=== PATIENT | male | born 1990 | race Caucasian/White ===

== ENCOUNTER 2024-07-25 09:57 | Emergency (ER) | payer OTHER ==
[2024-07-25 10:23] LABS: BASOPHILS % (AUTO) 0.5 %; EOSINOPHILS # (AUTO) 0.1 10^3/uL (0.0-0.7); EOSINOPHILS % (AUTO) 1.6 %; HGB - HEMOGLOBIN 16.5 g/dL (14.0-18.0); LYMPHOCYTES # (AUTO) 2.6 10^3/uL (1.5-3.5); MEAN CORPUSCULAR HEMOGLOBIN 31.5 pg (27.0-31.0); MEAN CORPUSCULAR HGB CONC 34.4 g/dL (32.0-36.0); MEAN CORPUSCULAR VOLUME 91.8 fL (80.0-94.0); MEAN PLATELET VOLUME 10.4 fL (7.4-11.4); MONOCYTES # (AUTO) 0.5 10^3/uL (0.0-1.0); MONOCYTES % (AUTO) 6.1 %; NEUTROPHILS # (AUTO) 5.4 10^3/uL (1.5-6.6); NEUTROPHILS % (AUTO) 61.3 %; PLT - PLATELET COUNT 195 10^3/uL (130-450); RED BLOOD COUNT 5.23 10^6/uL (4.70-6.10); RED CELL DISTRIBUTION WIDTH 12.7 % (12.0-15.0); WHITE BLOOD COUNT 8.7 x10^3/uL (4.8-10.8)
[2024-07-25 10:39] LABS: ALBUMIN 4.7 g/dL (3.2-5.5); ALBUMIN/GLOBULIN RATIO 2.1 (1.0-2.2); BILIRUBIN,TOTAL 1.3 mg/dL (0.2-1.0); CALCIUM 9.6 mg/dL (8.5-10.3); POTASSIUM 3.9 mmol/L (3.5-4.5); TOTAL PROTEIN 6.9 g/dL (6.4-8.9)
[2024-07-25] MEDS: ONDANSETRON ODT 4 MG TABLET TL STA (10:41)
--- NOTE | 2024-07-25 11:10 | ED Physician Documentation ---
PD HPI ABD PAIN - Stated complaint Stated Complaint: RT SIDE ABD/BACK PX,NAUSEA,VOMITING - Chief complaint Chief Complaint: Abd Pain - History obtained from History obtained from: Patient - History of Present Illness Timing - onset: How many hours ago (2), Today Timing - duration: Hours (2) Timing - details: Abrupt onset, Still present Quality: Aching, Pain, Other (steady unrelenting pain right flank moving to right abd as well, not impacted with movement, breathing,palpation. Nausea and some vomiting. No diarrhea. No dysuria. No prior similar. No recnet injury.) PD PAST MEDICAL HISTORY - Past Medical History Past Medical History: No - Past Surgical History Past Surgical History: No - Present Medications Home Medications: Ambulatory Orders Medication Instructions Recorded Confirmed HYDROcod/ACETAM 5/325 [Brethren 5/325] 1 ea PO Q4H PRN #14 tablet 07/25/24 Ibuprofen [Motrin] 600 mg PO TID #15 tab 07/25/24 Ondansetron Odt [Zofran] 4 mg TL Q6H PRN #5 tablet 07/25/24 Tamsulosin [Flomax] 0.4 mg PO DAILY #3 cap 07/25/24 - Allergies Allergies/Adverse Reactions: Allergies Allergy/AdvReac Type Severity Reaction Status Date / Time No Known Drug Allergies Allergy Verified 07/25/24 10:03 - Social History Does the pt smoke?: No Smoking Status: Never smoker Does the pt drink ETOH?: No Does the pt have substance abuse?: No - Immunizations Immunizations are current?: Yes PD ED PE NORMAL - Vitals Vital signs reviewed: Yes - General General: Alert and oriented X 3, Well developed/nourished - Cardiac Cardiac: RRR, No murmur - Respiratory Respiratory: No respiratory distress, Clear bilaterally - Abdomen Abdomen: Normal bowel sounds, Soft, Non tender (no pain elicited with palpation), Non distended - Back Back: No spinal TTP, Other (prominent CVA tnederness to percussion. ) - Derm Derm: Normal color, Warm and dry, No rash Results - Vitals Vitals: Vital Signs - 24 hr 07/25/24 13:27 Temperature 36.7 C Heart Rate 77 Respiratory 16 Rate Blood Pressure 132/99 H O2 Saturation 97 Oxygen O2 Source Room air - Labs Labs: Laboratory Tests 07/25/24 07/25/24 07/25/24 10:20 10:20 11:26 WBC 8.7 RBC 5.23 Hgb 16.5 Hct 48.0 MCV 91.8 MCH 31.5 H MCHC 34.4 RDW 12.7 Plt Count 195 MPV 10.4 Neut # (Auto) 5.4 Lymph # (Auto) 2.6 [place] # (Auto) 0.5 Eos # (Auto) 0.1 Baso # (Auto) 0.0 Absolute Nucleated RBC 0.00 Nucleated RBC % 0.0 Sodium 137 Potassium 3.9 Chloride 101 Carbon Dioxide 32 Anion Gap 4.0 L BUN 15 Creatinine 1.0 Estimated GFR (MDRD) 87 L Glucose 128 H Calcium 9.6 Total Bilirubin 1.3 H AST 24 ALT 36 Alkaline Phosphatase 93 Total Protein 6.9 Albumin 4.7 Globulin 2.2 Albumin/Globulin Ratio 2.1 Lipase 21 Urine Color YELLOW Urine Clarity HAZY Urine pH 5.5 Ur Specific [place] >=1.030 H Urine Protein 30 H Urine Glucose (UA) NEGATIVE Urine Ketones TRACE Urine Occult Blood NEGATIVE Urine Nitrite NEGATIVE Urine Bilirubin NEGATIVE Urine Urobilinogen 1 (NORMAL) Ur Leukocyte Esterase NEGATIVE Urine RBC 0-5 Urine WBC 4-5 Ur Squamous Epith Cells RARE Squamous Urine Crystals 3-5 Calcium Oxalate Urine Bacteria Few Urine Mucus Marked Strands Ur Microscopic Review INDICATED Urine Culture Comments NOT INDICATED PD Medical Decision Making - ED course Complexity details: reviewed results (no apparent abnormality on CT other than some hydronephrosis and orximal ureter without stone currently. ), re-evaluated patient (the patient had improvement though not resolution of pain with IV meds but did take few doses. Was better but not resolved at time of CT. No blood in urine. However there is some hydro on CT and no other obvious cause, and symptoms c/w stone, so presume passed it just prior to CT, with still spasm.), considered differential (steady unrelenting pain right flank moving to right abd as well, not impacted with movement, breathing,palpation. Nausea and some vomiting. No diarrhea. No dysuria. No prior similar. No recnet injury. Seems most likely c/w kidney stone. ), d/w patient Reviewed Lab Results: given the degree of pain predominantly in back still, without history of stones, I discussed with him getting CT to eval for size, location, etc and for differential of other causes. He is in agreement. First priority though was IV and pain meds, antinauseants, etc to improve symptoms. ED course: Presume passed stone in ED, without other disagnosis present Likely to have some pains still from inflammation and spasm for 1-2 days, so meds Rx for him. Departure - Departure Disposition: 01 Home, Self Care Clinical Impression: Right sided abdominal pain, Kidney stone on right side Condition: Stable Record reviewed to determine appropriate education?: Yes Instructions: ED Stone Renal Passed Follow-Up: EDELMIRA SARAH, [Primary Care Provider] - Prescriptions: Tamsulosin [Flomax] 0.4 mg PO DAILY #3 cap Ibuprofen [Motrin] 600 mg PO TID #15 tab HYDROcod/ACETAM 5/325 [Brethren 5/325] 1 ea PO Q4H PRN #14 tablet PRN Reason: Pain Ondansetron Odt [Zofran] 4 mg TL Q6H PRN #5 tablet PRN Reason: Nausea / Vomiting Comments: The character and location of your pain sounded consistent with kidney stone. No signs of infection in your urine. There was only minimal amount of blood. Your CT scan showed some mild swelling of the kidney and ureter which would be consistent with a blockage of the outflow. No stone is seen at this time. No other abnormalities identified on your CT scan. The combination would be indicative of a passed stone. There is not 1 seen in the bladder per se but it can be more difficult to identify there. Without other cause identified, we would treat this as a passed stone. There can still be residual pains that occur afterward due to irritation and spasming of the ureter. This can continue given for up to a few days. As such we commonly will prescribe some antispasmodic and anti-inflammatories to still continue with over the next few days. Stay well-hydrated. Add Tylenol every 4-6 hours if needed for pain or hydrocodone if needed for worse pain. I also prescribed some nausea medicine called ondansetron. I sent these to your preferred pharmacy, [facility], since the [facility] pharmacy would not be open today. Recheck if not fully resolved over the next couple of days. Return if worse or severe again or new symptoms. If you are feeling well into tomorrow then normal activity is fine. I am prescribing a short course of narcotic pain medication for you. These are potentially dangerous and addictive medications that should be used carefully. These medications may constipate you. Take an [id number] stool softener such as docusate twice daily with plenty of water while taking these me dications. If you go 24 hours without a bowel movement, take [id number] MiraLAX, per package instructions. Do not drink or drive while taking these medications. If you received narcotic or sedating medications while in the emergency department do not drive for 24 hours. Store this medication in a safe, secure place and out of reach of children. It is a violation of federal law to give or sell this medication to another person or to use in a manner other than prescribed. The ED will not refill narcotic prescriptions, including prescriptions lost or stolen. You can dispose of unwanted medications at the [facility]'s office or at several pharmacies such as [facility]. Forms: PCP List, Activity restrictions Discharge Date/Time: 07/25/24 13:38
[2024-07-25] MEDS ORDERED: iohexoL-300 100 ML VIAL ONE (11:21)
[2024-07-25 11:30] LABS: BILIRUBIN,URINE NEGATIVE (NEGATIVE); CLARITY,URINE HAZY (CLEAR); GLUCOSE, URINE (UA) NEGATIVE (NEGATIVE); KETONES,URINE (UA) TRACE mg/dL (NEGATIVE); LEUKOCYTE ESTERASE, URINE NEGATIVE (NEGATIVE); NITRITE,URINE NEGATIVE (NEGATIVE); OCCULT BLOOD,URINE NEGATIVE (NEGATIVE); PH,URINE 5.5 PH (5.0-7.5); PROTEIN,URINE 30 mg/dL (NEGATIVE); UROBILINOGEN,URINE 1 (NORMAL) E.U./dL (NORMAL)
[2024-07-25 11:33] LABS: RBC,URINE 0-5 /HPF (0-5)
[2024-07-25 11:34] LABS: BACTERIA,URINE Few /HPF (None Seen); CRYSTALS,URINE 3-5 Calcium Oxalate /LPF; MUCUS,URINE Marked Strands; SQUAMOUS EPITHELIAL CELL,UR RARE Squamous (<= Few)
[2024-07-25] MEDS: KETOROLAC 15 MG/ML VIAL IVP STA (11:36)
[2024-07-25] MEDS: ONDANSETRON 4 MG/2 ML VIAL IVP STA (11:36)
[2024-07-25] MEDS: HYDROmorphone 1 MG/ML CARPUJECT IVP STA ×2 (11:37→12:31)
[2024-07-25] MEDS: SODIUM CHLORIDE 0.9% 1,000 ML IV STA (11:37)
--- NOTE | 2024-07-25 12:05 | CT Report ---
PROCEDURE: Abdomen/Pelvis W INDICATIONS: right flank/abd pain CONTRAST: omni, 100 TECHNIQUE: After the administration of intravenous contrast, a CT scan of the abdomen and pelvis was performed. Images were recorded and evaluated at appropriate window settings. Reformats: coronal and sagittal. F or radiation dose reduction, the following was used: automated exposure control, adjustment of mA and /or kV according to patient size. COMPARISON: None. FINDINGS: Image quality: Diagnostic. Lower chest: Bibasilar atelectasis. Heart size is normal. Liver: Hepatic steatosis. Gallbladder: No radiopaque stones or wall thickening. Biliary tree: No intrahepatic or extrahepatic dilation, accounting for age. Spleen: Splenomegaly. Pancreas: No pancreatic ductal dilation. Adrenals: No adrenal nodule. Kidneys and ureters: There is mild right hydroureteronephrosis. No significant perinephric or periure teral stranding. No obstructing urolith identified in the kidney or right ureter, or bladder. No left hydronephrosis. No renal cystic lesion which requires follow up. No solid mass. Stomach, bowel and peritoneum: No gastric or small bowel dilation. No abnormal wall thickening. No pa thologic free fluid. Normal appendix. Lymph nodes: No central or retroperitoneal adenopathy. Vessels: No infrarenal aortic aneurysm. Patent portal vein. PELVIS Reproductive organs: Unremarkable. Bladder: No abnormal wall thickening, accounting for underdistention. Pelvic lymph nodes: No pelvic adenopathy by size criteria. Bones: No aggressive osseous abnormality. No acute compression fracture. Other: No significant ventral or inguinal hernia. IMPRESSION: Mild right hydroureteronephrosis without visible obstructing radiodense stone or mass/adenopathy. Fin dings may represent recently passed stone. Otherwise, no other acute abnormalities identified in the abdomen or pelvis to explain right lower quadrant abdominal pain. Normal appendix. Mild splenomegaly. Reviewed by: Valentino Mercedes MD on 07/25/2024 11:03 AM ROM Approved by: Valentino Mercedes MD on 07/25/2024 11:03 AM ROM Station ID: [id number]
[2024-07-25] MEDS: LIDOCAINE-MPF 2% 6 ML in SODIUM CHLORIDE 0.9% 50 ML IV STA (12:49)
[2024-07-25 13:01] VITALS: BP 132/99; O2SAT 97
[2024-07-25] MEDS: iohexoL-300 100 ML VIAL IVP ONE (18:23)
== END 2024-07-25 13:38 | disposition home or self-care (01) ==
LOC: ED 09:57
DX: N20.0 Calculus of kidney (principal)
CPT/HCPCS: 36415; 74177; 80053; 81001; 83690; 85025; 96365; 96375; 96376; 99284; J1170; J7040; Q0162; Q9967; 81003; 87086